=== PATIENT | female | born 1990 | race Caucasian/White ===

== ENCOUNTER 2025-04-02 12:56 | Emergency (ER) | payer MEDICAID, OTHER ==
[~2025-04-02] VITALS: Ht 170.2 cm; Wt 69.0 kg
[~2025-04-02 12:56] MED LIST: ZOF4T PO
[2025-04-02 12:59] VITALS: TEMP 97.7
--- NOTE | 2025-04-02 13:34 | RADIOLOGY REPORT ---
EXAM: RIGHT FOOT, COMPLETE (3VW MIN) HISTORY: FOOT PAIN. COMPARISON: None available. TECHNIQUE: RIGHT FOOT, COMPLETE (3VW MIN) FINDINGS: Acute fydt-zm-vayhraqulo displaced comminuted fracture of the rkc-sj-lchmkq 5th metatarsal shaft. No dislocation. No significant degenerative changes. Small retrocalcaneal spur/mild enthesopathy. Questionable mild demineralization of the osseous structures. Mild soft tissue swelling along the lateral aspect of the midfoot. IMPRESSION: Acute nzxe-mg-zlfsxfdqre displaced comminuted fracture of the ouw-xg-ipflal 5th metatarsal shaft.
[2025-04-02] MEDS: HYDROcodone/acetaminophen 10/325mg tab PO ONE (14:58)
[2025-04-02] MEDS: LIDOcaine 1% 30ml preserv. free vial SQ STA (15:17)
[2025-04-02] MEDS ORDERED: HYDR-3965 PO (15:17)
--- NOTE | 2025-04-02 15:19 | Physician Documentation ---
History of Present Illness ~ Chief Complaint: Foot pain Stated Complaint: R FOOT PAIN Time Seen by MD: 14:24 Primary Medical Doctor: NONE HPI 34-year-old female presents to the ED with a complaint of right foot pain after rolling it while walking down stairs in healed boots four days ago. States she has has pain when bearing weight but is able to with some difficulty. Denies any numbness or tingling reports bruising in the lateral aspect of the right foot Day of Onset: Apr 02, 2025 Tetanus witin 5 years: Yes Medication Reconciliation Allergies: Coded Allergies: No Known Allergies (Unverified , 01/30/13) Scheduled Ondansetron ODT* (Zofran ODT*), 4 MG PO Q6H Past Medical History Past Medical History: UTI Past Surgical History: no surgical history Alcohol Use: None Drug Use: none Lives with: Other Occupation: employed Review of Systems All Other Systems at this time: Reviewed and Negative ROS As stated above in the HPI, otherwise all systems are reviewed and negative. Physical Exam Vital Signs: Temperature: 97.7, Source: Temporal, Heart Rate: 97, Respiratory Rate: 16, BP: 153/95, Pulse Oximetry: 100, Weight: 69.000 Oxygen Flow Rate: 0 Physical Exam General: Alert, no apparent distress. Extremities: Notable deformity swelling and ecchymosis on the right foot in line with the 5th metatarsal Neurologic: Oriented x4. Psychiatric: Normal mood and affect. Skin: Normal color, warm and dry. No edema, no ecchymosis. Procedures Joint Reduction : Reduction By: myself Conscious Sedation: No Pre-Procedure NV Exam: within normal limits Post-Procedure NV Exam: within normal limits Post Reduction Film: acceptable alignment Tolerated Procedure Well?: yes, no complications Procedure Note diet tech we will place a short-leg on the patient's affected limb Progress Results/Orders Results/Orders Orders - ANTON CASTILLO FINANCE ASSISTANT Ortho Orders (04/02/25 ) Foot, Complete (3vw Min) (04/02/25 15:03) Completed Orders - ANTON CASTILLO FINANCE ASSISTANT Lidocaine 1% 30ml Vial (Xylocaine 1% Via (04/02/25 14:24) Hydrocodone/Apap 10/325 (Independence 10/325mg (04/02/25 14:45) Medications Received in ER Medications (Trade) Dose Ordered Sig/Shanta Route PRN Reason Start Time Stop Time Status Last Admin Dose Admin (Independence 10/325mg tab) 1 tab ONCE ONCE PO 04/02/25 14:45 04/02/25 14:46 DC 04/02/25 14:58 1 TAB Vital Signs 04/02/25 04/02/25 12:59 14:58 Temp 97.7 Pulse 97 Resp 16 16 B/P (MAP) 153/95 Pulse Ox 100 O2 Flow Rate 0 Medical Decision Making Additional information obtaine: old records Findings Joint reduction was moderately successful with notable improvement. Due to the nature of the spiral fracture it is questionable whether or not it will stay in line. We will splint the patient to the best of her ability and have her follow up with the [facility] General Diff Dx:Considerations: Unlikely: Abrasion, Contusion, Fracture, H ematoma, Laceration, Malunion, Neurovascular injury, Open fracture, Sprain, Ulcer, Other Knee Diff Dx:Considerations: Unlikely: Abrasion, Arthritis, Contusion, DJD, Fracture-femur, Fracture-fibula, Fracture-patella, Fracture-tibia, Gout, Hematoma, Laceration, Meniscus injury, Neurovascular injury, Open fracture, Rheumatoid arthritis, Septic, Sprain, Sprain-MCL, Sprain-LCL, Sprain-ACL, Sprain-PCL, Other Ankle Diff Dx:Considerations: Include: Abrasion, Arthritis, Contusion, DJD, Fracture-metatarsal, Fracture-fibula, Fracture-tarsal, Fracture-tibia, Gout, Hematoma, Laceration, Malunion, Neurovascular injury, Nonunion, Open fracture, Osteomyelitis, Rheumatoid arthritis, Sprain, Septic, Ulcer, Other Foot Diff Dx:Considerations: Include: Abrasion, Arthritis, Cellulitis, Contusion, Dislocation, DJD, Fracture-metatarsal, Fracture-phalynx, Fracture- tarsal, Gout, Hematoma, Ingrown toenail, Laceration, Malunion, Neurovascular injury, Open fracture, Paronychia, Puncture, Rheumatoid, Sprain, Septic, Subungual hematoma, Ulcer, Other Toe Diff Dx:Considerations: Include: Abrasion, Cellulitis, Contusion, Dislocation, Felon, Fracture, Hematoma, Laceration, Neurovascular injury, Open fracture, Paronychia, Subungual hematoma, Other Departure Disposition: 01 HOME / SELF CARE / HOMELESS Impression: Primary Impression: Fracture of foot Discharge Instructions: Fracture, Foot Additional Instructions: Follow up with [facility] at your earliest convenience for further evaluation of your toe fracture Referrals: NO PRIMARY CARE PROVIDER (PCP) JULIET DUKE Jr., MD Prescriptions Hydrocodone Bit/Acetaminophen 5/325 MG (Independence 5/325 MG) 5 Mg/325 Mg Tablet 1 TAB PO Q6H PRN for pain, #14 TAB Prov: ANTON CASTILLO FINANCE ASSISTANT 04/02/25 Education Educated: Patient Educated regarding: diagnosis Signature Scribe Signature: 7 Attestation: Scribed for Anton Castillo Data Capture Specialist by Anton Castillo - MARIAN . 04/02/25 15:19 ANTON CASTILLO FINANCE ASSISTANT Apr 02, 2025 15:19
--- NOTE | 2025-04-02 15:43 | RADIOLOGY REPORT ---
EXAM: RIGHT FOOT,LIMITED (AP/LAT) CLINICAL HISTORY: Post reduction RIGHT times. COMPARISON: Prior same day right foot radiographs 04/02/2025. TECHNIQUE: DI FOOT,LIMITED (AP/LAT). FINDINGS: See impression. IMPRESSION: Compared to prior same-day left foot radiographs: 1. Similar-appearing acute gvhs-md-kelmlshrju displaced comminuted fracture of the zkt-yf-awfdar 5th metatarsal shaft. 2. No other convincing change.
[2025-04-02 16:05] VITALS: BP 142/90; PULSE 90; RESP 16; O2SAT 99
== END 2025-04-02 16:16 | disposition home or self-care (01) ==
LOC: ER 12:57
DX: Z87.440 Personal history of urinary (tract) infections (principal); Z79.899 Other long term (current) drug therapy
CPT/HCPCS: 28470; 73620; 73630; 99284; A6446; A6449